=== PATIENT | male | born 1975 | race Caucasian/White ===

== ENCOUNTER 2016-10-27 20:50 | Emergency (ER) | payer BC ==
[~2016-10-27] VITALS: Ht 170.2 cm; Wt 77.3 kg
[2016-10-27 20:53] VITALS: TEMP 98.2
[2016-10-27] MEDS ORDERED: ONE-A-DAY MEN'S1 TAB PO (20:56)
[2016-10-27] MEDS ORDERED: COZAAR 50MG50 MG/TAB PO (20:57)
[2016-10-27] MEDS ORDERED: SINGULAIR 110 MG/TAB PO (20:57)
[2016-10-27] MEDS ORDERED: ZYRTEC 10MG10 MG PO (20:57)
[2016-10-27] MEDS ORDERED: ZANTAC 150MG T150 MG PO (20:58)
[2016-10-27] MEDS ORDERED: FLONASEALLERGY NS (20:58)
[2016-10-27 21:51] LABS: BASO # 0.1 (0.0-0.2); BASO % 1.2 % (0.0-2.0); EOS # 0.4 (0.0-0.7); EOS % 4.6 % (0-4.0); GRAN # 4.6 (1.4-6.5); GRAN % 49.7 % (42.2-75.2); HEMATOCRIT 46.9 % (42.0-52.0); HEMOGLOBIN 15.9 g/dl (13.5-18.0); LYMPH # 3.2 (1.2-3.4); LYMPH % 34.6 % (20.0-51.0); MEAN CELL VOLUME 83 fl (80.0-100.0); MEAN CORPUSCULAR HEMOGLOBIN 28 pg (27.0-31.0); MEAN CORPUSCULAR HGB CONC 34 g/dl (33.0-37.0); MEAN PLATELET VOLUME 9.8 fl (7.4-10.4); MONO # 0.9 (0.1-0.6); MONO % 9.5 % (1.7-9.3); PLATELET COUNT 360 K/mm3 (130-400); RED BLOOD COUNT 5.65 M/mm3 (4.20-5.60); WHITE BLOOD COUNT 9.2 K/mm3 (4.8-10.8)
[2016-10-27 22:08] LABS: ADJUSTED CALCIUM 9.2 mg/dL (8.4-10.2); ALANINE AMINOTRANSFERASE 64 U/L (21-72); ALBUMIN 4.7 gm/dL (3.5-5.0); ALKALINE PHOSPHATASE 61 U/L (50-136); ANION GAP 14 mmol/L (7-16); BILIRUBIN,TOTAL 0.8 mg/dL (0.0-1.0); BLOOD UREA NITROGEN 12 mg/dL (9-20); CALCIUM 9.8 mg/dL (8.4-10.2); CARBON DIOXIDE 28 mmol/L (22-30); CHLORIDE 101 mmol/L (98-107); GLUCOSE 99 mg/dL (74-106); POTASSIUM 4.5 mmol/L (3.4-5.0); SODIUM 143 mmol/L (137-145); TOTAL PROTEIN 8.1 gm/dL (6.4-8.2)
[2016-10-27 22:20] LABS: TROPONIN-I < 0.012 ng/mL (0.000-0.034)
[2016-10-27] MEDS ORDERED: CATAPRES 0.1MG0.1 MG PO (22:29)
[2016-10-27 22:39] VITALS: BP 124/95; PULSE 76
== END 2016-10-27 22:45 | disposition home or self-care (01) ==
LOC: COL.ER 20:50
PROVIDERS: Emergency Medicine
DX: I10 Essential (primary) hypertension (principal)

== ENCOUNTER 2018-01-28 19:18 | Emergency (ER) | payer BC ==
[~2018-01-28] VITALS: Ht 170.2 cm; Wt 75.0 kg
[~2018-01-28 19:18] MED LIST: CATAPRES 0.1MG0.1 MG PO; COZAAR 50MG50 MG/TAB PO; FLONASEALLERGY NS; ONE-A-DAY MEN'S1 TAB PO; SINGULAIR 110 MG/TAB PO; ZANTAC 150MG T150 MG PO; ZYRTEC 10MG10 MG PO
[2018-01-28 19:21] VITALS: BP 117/62; TEMP 98.7
[2018-01-28] MEDS ORDERED: PRILOTC (19:32)
[2018-01-28] MEDS ORDERED: FLEXERIL 1010 MG/TAB PO (20:35)
[2018-01-28] MEDS ORDERED: NORCO 325 MG-51 TAB PO (20:35)
[2018-01-28 20:50] VITALS: PULSE 83
== END 2018-01-28 20:50 | disposition home or self-care (01) ==
LOC: COL.ER 19:18
DX: S76.011A Strain of muscle, fascia and tendon of right hip, initial encounter (principal); Z87.891 Personal history of nicotine dependence; X50.0XXA Overexertion from strenuous movement or load, initial encounter; Y93.64 Activity, baseball

== ENCOUNTER → 2018-09-25 | Outpatient (REF) ==
[~2018-09-25] MED LIST changes: +FLEXERIL 1010 MG/TAB PO; +NORCO 325 MG-51 TAB PO; +PRILOTC
== END ==
LOC: COL.CARD 09:08
DX: Z01.818 Encounter for other preprocedural examination (principal)

== ENCOUNTER → 2018-10-17 | Outpatient (CLI) | payer BC | LOC: COL.RAD 07:32 | DX: K21.9 Gastro-esophageal reflux disease without esophagitis (principal) | CPT/HCPCS: A9541 ==

== ENCOUNTER → 2019-10-10 | Outpatient (CLI) | payer BC | LOC: COL.RAD 09-29 13:15 | DX: S43.492A Other sprain of left shoulder joint, initial encounter (principal) | CPT/HCPCS: A9585; Q9967 ==

== ENCOUNTER → 2020-02-06 | Outpatient (CLI) | payer BC | LOC: COL.RAD 13:34 | DX: J32.0 Chronic maxillary sinusitis (principal) ==

== ENCOUNTER → 2020-06-08 | Outpatient (CLI) | payer BC | LOC: COL.RAD 11:45 | DX: R10.11 Right upper quadrant pain (principal); R11.0 Nausea; R14.0 Abdominal distension (gaseous) | CPT/HCPCS: A9537; J2805 ==

== ENCOUNTER → 2021-05-20 | Outpatient (CLI) | payer BC ==
[~2021-05-20] VITALS: Ht 170.2 cm; Wt 76.5 kg
[~2021-05-20] MED LIST changes: +COZAAR100 MG PO; +HYGROTON 2525 MG/TAB PO; +MUCINEX 60600 MG/TA1 PO; +PROBIOTIC BLEN1 EACH PO; +XYZAL5 MG PO
[2021-05-20 06:53] VITALS: BP 119/76; PULSE 67; TEMP 97.7
[2021-05-20 07:37] VITALS: BP 124/84; PULSE 78
== END ==
LOC: COL.RAD 06:30
DX: M48.062 Spinal stenosis, lumbar region with neurogenic claudication (principal); M51.36 Other intervertebral disc degeneration, lumbar region
CPT/HCPCS: J3301

== ENCOUNTER → 2021-07-08 | Outpatient (CLI) | payer BC ==
[~2021-07-08] VITALS: Ht 170.2 cm; Wt 77.0 kg
[2021-07-08 06:20] VITALS: BP 129/91; PULSE 81; TEMP 98.1
[2021-07-08 07:44] VITALS: BP 129/85; PULSE 69
== END ==
LOC: COL.RAD 05:56
DX: M48.062 Spinal stenosis, lumbar region with neurogenic claudication (principal); M51.36 Other intervertebral disc degeneration, lumbar region
CPT/HCPCS: J3301

== ENCOUNTER → 2021-12-05 | Outpatient (CLI) | payer BC | LOC: COL.RAD 07:25 | DX: K21.9 Gastro-esophageal reflux disease without esophagitis (principal) | CPT/HCPCS: A9541 ==

== ENCOUNTER → 2022-06-06 | Outpatient (CLI) | payer BC | LOC: COL.RAD 11:52 | DX: R20.2 Paresthesia of skin (principal) | CPT/HCPCS: Q9967 ==

== ENCOUNTER 2023-09-21 10:47 | Day surgery (SDC) | payer BC ==
[~2023-09-21] VITALS: Ht 170.2 cm; Wt 75.3 kg
[~2023-09-21 10:47] MED LIST changes: +LR 1,000 ML IV SCH; +Ondansetron 4 MG/2 ML VIAL IV PRN
[2023-09-21] MEDS ORDERED: DEXILANT60 MG PO (11:03)
[2023-09-21] MEDS ORDERED: ROBAXIN 75750 MG/TAB PO (11:04)
[2023-09-21] MEDS ORDERED: PROZAC 10MG10 MG PO (11:06)
--- NOTE | 2023-09-21 11:22 | NUR ---
Pt arrived with , VSS, 20G to RAC placed without incident and LR to KVO; reviewed meds, allergies, and history; med rec completed; consents reviewed and signed and no questions; pt awaiting procedure.
[2023-09-21 11:26] VITALS: BP 121/78; PULSE 74; TEMP 98.8
[2023-09-21] MEDS ORDERED: Lidocaine PF 2% (20 MG/ML) 5 ML VIAL ONE (12:10)
[2023-09-21 12:38] VITALS: BP 119/84; PULSE 79; TEMP 97
--- NOTE | 2023-09-21 12:38 | NUR ---
PATIENT AMBULATED TO CHAIR WITH STEADY GAIT, ASSIST OF 2. ALERT AND AWAKE. DENIES PAIN, NAUSEA AND SHORTNESS OF BREATH. BREATHING REGULAR AND UNLABORED ON ROOM AIR. SKIN WARM AND DRY. IV IN PLACE. NURSE HANDOFF COMPLETED IN ROOM. SEE CHART FOR VITAL SIGNS. PATIENT HAD CRANBERRY JUICE AND A MUFFIN. BOTH FOOD AND DRINK TOLERATED WELL. NO DYSPHAGIA. CALL LIGHT IN REACH. , DANNY, PRESENT IN ROOM.
[2023-09-21 12:45] VITALS: BP 113/87; PULSE 76
[2023-09-21 13:00] VITALS: BP 114/91; PULSE 75
[2023-09-21 13:01] VITALS: BP 119/84; PULSE 71
--- NOTE | 2023-09-21 13:10 | NUR ---
1248: MET WITH PATIENT AND SPOUSE IN ROOM TO DISCUSS PROCEDURE. 1300: DISCHARGE TEACHING COMPLETED WITH PRINTED EDUCATION AND INSTRUCTIONS SENT HOME WITH PATIENT. PATIENT AND SPOUSE VERBALIZED UNDERSTANDING OF TEACHING. DENIES PAIN, NAUSEA AND SHORTNESS OF BREATH. TOLERATING FOOD AND DRINK, NO DYSPHAGIA. 1303:IV REMOVED. GAUZE AND COBAN PLACED OVER SITE. 1310: PATIENT DISCHARGED HOME WITH [facility].
== END 2023-09-21 13:10 | disposition home or self-care (01) ==
LOC: SDCO 10:47
DX: K29.30 Chronic superficial gastritis without bleeding (principal); K21.9 Gastro-esophageal reflux disease without esophagitis; Z87.891 Personal history of nicotine dependence
CPT/HCPCS: J2704; J7120